=== PATIENT | female | born 1995 | race African-American/Black ===

== ENCOUNTER 2018-03-27 17:01 | Emergency (ER) | payer OTHER ==
[2018-03-27] MEDS ORDERED: Tylenol #3 Tablet PO ONE (17:29)
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
[2018-03-27] MEDS ORDERED: Tylenol #3 Tablet ONE (17:40)
[2018-03-27] MEDS ORDERED: TETRACAINE 0.5% STERI-UNIT SOL OP ONE (17:48)
[2018-03-27] MEDS ORDERED: Eye-Stream Solution ONE (17:48)
[2018-03-27] MEDS ORDERED: Fluor-I-Strip/Ful-Flo OP ONE ×2 (17:49→18:39)
[2018-03-27] MEDS ORDERED: Eye-Stream Solution OP ONE (18:39)
[2018-03-27] MEDS ORDERED: TETRACAINE 0.5% STERI-UNIT SOL OP STA (18:39)
[2018-03-27] MEDS ORDERED: Erythromycin 3.5 GM OPHTH. OP ONE (18:39)
[2018-03-27] MEDS ORDERED: Erythromycin 1 GM ONE (18:59)
[2018-03-27 19:40] VITALS: BP 125/78; PULSE 56; O2SAT 100
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
== END 2018-03-27 19:40 | disposition home or self-care (01) ==
LOC: ED 17:01
DX: R51 Headache (principal); S16.1XXA Strain of muscle, fascia and tendon at neck level, initial encounter; S05.01XA Injury of conjunctiva and corneal abrasion without foreign body, right eye, initial encounter; V43.51XA Car driver injured in collision with sport utility vehicle in traffic accident, initial encounter
CPT/HCPCS: 70450; 70486; 72125; 73590; 99284; A9270-GY